=== PATIENT | female | born 1995 | race African-American/Black ===

== ENCOUNTER 2018-01-15 07:05 | Emergency (ER) | payer OTHER ==
--- NOTE | 2018-01-15 08:27 | RAD REPORT ---
EXAM DESCRIPTION: VAS - Extremity Venous Uni Ltd - 01/15/2018 8:05 am CLINICAL HISTORY: Leg swelling and edema. COMPARISON: None. FINDINGS: Right lower extremity venous system was interrogated with Doppler technique. Normal flow, compressibility and augmentation was noted. There is no DVT present. IMPRESSION: No evidence of right lower extremity deep venous thrombosis.
--- NOTE | 2018-01-15 08:43 | ER ---
Nurse's Notes [facility] Name: Tiera Galindo Age: 22 yrs Sex: Female : 1995 Arrival Date: 01/15/2018 Time: 07:06 Bed 14 Private MD: Diagnosis: Sciatica, right side Presentation: 01/15 07:19 Presenting complaint: Patient states: has had pain to right leg X 3 -4 days, pain iw radiates from low back to right leg, /, pt is 26 weeks . Transition of care: patient was not received from another setting of care. Onset of symptoms was January 11, 2018. Initial Sepsis Screen: Does the patient meet any 2 criteria? No. Patient's initial sepsis screen is negative. Does the patient have a suspected source of infection? No. Patient's initial sepsis screen is negative. Care prior to arrival: None. 07:19 Method Of Arrival: Ambulatory iw 07:19 Acuity: ELEAZAR 4 iw Triage Assessment: 07:29 General: Appears in no apparent distress. uncomfortable, Behavior is calm, cooperative, hj appropriate for age. 07:29 Pain: Complains of pain in right leg. 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 - Social history:: Smoking status: Patient/guardian denies using tobacco, Patient/guardian denies using alcohol. Screenin:29 Abuse screen: Denies threats or abuse. Denies injuries from another. Nutritional hj screening: No deficits noted. Tuberculosis screening: No symptoms or risk factors identified. Fall Risk None identified. Assessment: 07:30 General: Appears in no apparent distress. uncomfortable, Behavior is calm, cooperative, hj appropriate for age. Pain: Complains of pain in right leg. Neuro: Level of Consciousness is awake, alert, obeys commands, Oriented to person, place, time, situation, Appropriate for age. Cardiovascular: Capillary refill < 3 seconds Patient's skin is warm and dry. Respiratory: Airway is patent Respiratory effort is even, unlabored, Respiratory pattern is regular, symmetrical. GI: No signs and/or symptoms were reported involving the gastrointestinal system. : No signs and/or symptoms were reported regarding the genitourinary system. EENT: No signs and/or symptoms were reported regarding the EENT system. Derm: No signs and/or symptoms reported regarding the dermatologic system. Musculoskeletal: Reports pain in right leg. 07:50 Reassessment: US tech in room for procedure;. hj Vital Signs: 07:21 BP 125 / 59; Pulse 79; Resp 18 S; Temp 98.5; Pulse Ox 97% on R/A; Weight 125.19 kg; iw Height 5 ft. 4 in. (162.56 cm); Pain 7/10; 08:52 BP 128 / 60; Pulse 75; Resp 18; Pulse Ox 100% on R/A; hj 07:21 Body Mass Index 47.37 (125.19 kg, 162.56 cm) iw ED Course: 07:06 Patient arrived in ED. ds1 07:18 Ramirez Rivera NP is PHCP. pm1 07:18 Derrick Yu MD is Attending Physician. pm1 07:21 Triage completed. iw 07:21 Arm band placed on. iw 07:29 Nahum Torres, SHANE is Primary Nurse. hj 07:30 Patient has correct armband on for positive identification. Placed in gown. Bed in low hj position. Call light in reach. Side rails up X 1. 08:04 Extremity Venous Uni Ltd US In Process Unspecified. EDMS 08:05 Ultrasound completed. aa4 08:51 No provider procedures requiring assistance completed. Patient did not have IV access hj during this emergency room visit. Administered Medications: No medications were administered Outcome: 08:42 Discharge ordered by . pm1 08:52 Discharged to home ambulatory. hj 08:52 Condition: stable 08:52 Discharge instructions given to patient, Instructed on discharge instructions, follow up and referral plans. Demonstrated understanding of instructions, follow-up care. 09:03 Patient left the ED. hj Signatures: Dispatcher [employer] EDKY La Doherty ds1 Shanika Gates RN RN Day Carney aa4 Nahum Torres RN RN Ramirez Rivera NP IMPLEMENTATION LEAD pm1
--- NOTE | 2018-01-15 08:43 | EDPHYS ---
Physician Documentation [facility] Name: Tiera Galindo Age: 22 yrs Sex: Female : 1995 Arrival Date: 01/15/2018 Time: 07:06 Bed 14 Private MD: ED Physician Derrick Yu HPI: 01/15 07:39 This 22 yrs old Black Female presents to ER via Ambulatory with complaints of Right Leg pm1 Pain. 07:39 The patient presents with pain, that is acute. The complaints affect the right hip and pm1 lateral aspect of right thigh. Context: The problem was sustained at an unknown site, resulted from an unknown cause, the patient can fully bear weight, the patient is able to ambulate, Problem is a result from a previous injury: No. 26 weeks . Onset: The symptoms/episode began/occurred 4 day(s) ago. Modifying factors: The symptoms are alleviated by positioning. the symptoms are aggravated by movement. Associated signs and symptoms: Pertinent negatives calf tenderness, fever, nausea, numbness, swelling, vomiting. Treatment prior to arrival includes: no previous treatment. Severity of symptoms: in the emergency department the symptoms are unchanged. The patient has not experienced similar symptoms in the past. Patient with pain to distal lateral aspect of right thigh radiating to right buttocks area. No chest pain or shortness of breath. 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 - Social history:: Smoking status: Patient/guardian denies using tobacco, Patient/guardian denies using alcohol. ROS: 08:35 Constitutional: Negative for fever, chills, and weight loss, Eyes: Negative for injury, pm1 pain, redness, and discharge, ENT: Negative for injury, pain, and discharge, Neck: Negative for injury, pain, and swelling, Cardiovascular: Negative for chest pain, palpitations, and edema, Respiratory: Negative for shortness of breath, cough, wheezing, and pleuritic chest pain, Abdomen/GI: Negative for abdominal pain, nausea, vomiting, diarrhea, and constipation, Back: Negative for injury and pain, : Negative for injury, bleeding, discharge, and swelling. 08:35 Skin: Negative for injury, rash, and discoloration, Neuro: Negative for headache, weakness, numbness, tingling, and seizure. 08:35 MS/extremity: Positive for pain, of the right leg, Negative for decreased range of motion, erythema, swelling. Exam: 08:35 Head/Face: Normocephalic, atraumatic. Eyes: Pupils equal round and reactive to light, pm1 extra-ocular motions intact. Lids and lashes normal. Conjunctiva and sclera are non-icteric and not injected. Cornea within normal limits. Periorbital areas with no swelling, redness, or edema. ENT: Nares patent. No nasal discharge, no septal abnormalities noted. Tympanic membranes are normal and external auditory canals are clear. Oropharynx with no redness, swelling, or masses, exudates, or evidence of obstruction, uvula midline. Mucous membranes moist. Neck: Trachea midline, no thyromegaly or masses palpated, and no cervical lymphadenopathy. Supple, full range of motion without nuchal rigidity, or vertebral point tenderness. No Meningismus. Chest/axilla: Normal chest wall appearance and motion. Nontender with no deformity. No lesions are appreciated. Cardiovascular: Regular rate and rhythm with a normal S1 and S2. No gallops, murmurs, or rubs. Normal PMI, no JVD. No pulse deficits. Respiratory: Lungs have equal breath sounds bilaterally, clear to auscultation and percussion. No rales, rhonchi or wheezes noted. No increased work of breathing, no retractions or nasal flaring. Abdomen/GI: Soft, non-tender, with normal bowel sounds. No distension or tympany. No guarding or rebound. No evidence of tenderness throughout. Back: No spinal tenderness. No costovertebral tenderness. Full range of motion. Skin: Warm, dry with normal turgor. Normal color with no rashes, no lesions, and no evidence of cellulitis. 08:35 Constitutional: The patient appears in no acute distress, alert, awake, comfortable, non-toxic, well developed, well hydrated, well groomed, well nourished, obese. 08:35 Musculoskeletal/extremity: Extremities: grossly normal except: noted in the lateral aspect of right thigh: tenderness, There is no evidence of decreased ROM, deformity, ecchymosis, swelling, Circulation is intact in all extremities. Pulses: noted to be 2+ in the right dorsalis pedis artery and left dorsalis pedis artery, Sensation intact. 08:35 Neuro: Orientation: is normal, Motor: is normal, moves all fours, Sensation: is normal, no obvious gross deficits, Gait: is steady, at a normal pace, without difficulty. Vital Signs: 07:21 BP 125 / 59; Pulse 79; Resp 18 S; Temp 98.5; Pulse Ox 97% on R/A; Weight 125.19 kg; iw Height 5 ft. 4 in. (162.56 cm); Pain 7/10; 08:52 BP 128 / 60; Pulse 75; Resp 18; Pulse Ox 100% on R/A; hj 07:21 Body Mass Index 47.37 (125.19 kg, 162.56 cm) iw MDM: 07:27 Patient medically screened. pm1 08:38 Data reviewed: vital signs. Data interpreted: Pulse oximetry: on room air is 97 %. pm1 Interpretation: normal. Counseling: I had a detailed discussion with the patient and/or guardian regarding: the historical points, exam findings, and any diagnostic results supporting the discharge/admit diagnosis, radiology results, the need for outpatient follow up, to return to the emergency department if symptoms worsen or persist or if there are any questions or concerns that arise at home. 01/15 07:27 Order name: Extremity Venous Uni Ltd ; Complete Time: 08:35 pm1 Administered Medications: No medications were administered Disposition: 14:54 Co-signature as Attending Physician, Derrick Yu MD. Chart complete. rn Disposition: 01/15/18 08:42 Discharged to Home. Impression: Sciatica, right side. - Condition is Stable. - Discharge Instructions: Sciatica. - Medication Reconciliation Form, Thank You Letter form. - Follow up: Emergency Department; When: As needed; Reason: Worsening of condition. Follow up: Private Physician; When: 2 - 3 days; Reason: Recheck today's complaints, Continuance of care, Re-evaluation by your physician. - Problem is new. - Symptoms have improved. Signatures: Dispatcher [employer] Shanika Richardson RN RN Derrick Yu MD MD rn Joaquin, Henry, RN RN Ramirez Rivera, TREE SCOUT TREE SCOUT pm1 Corrections: (The following items were deleted from the chart) 09:03 08:42 01/15/2018 08:42 Discharged to Home. Impression: Sciatica, right side. Condition hj is Stable. Forms are Medication Reconciliation Form, Thank You Letter, Antibiotic Education, Prescription Opioid Use. Follow up: Emergency Department; When: As needed; Reason: Worsening of condition. Follow up: Private Physician; When: 2 - 3 days; Reason: Recheck today's complaints, Continuance of care, Re-evaluation by your physician. Problem is new. Symptoms have improved. pm1
== END 2018-01-15 09:03 | disposition home or self-care (01) ==
LOC: ER 07:05
DX: M54.31 Sciatica, right side (principal); Z3A.26 26 weeks gestation of pregnancy
CPT/HCPCS: 93971; 99283

== ENCOUNTER 2018-11-24 10:32 | Emergency (ER) | payer OTHER, SELFPAY ==
[2018-11-24] MEDS ORDERED: METOCLOPRAMIDE 10 MG/2mL INJ ONE (11:32)
[2018-11-24 11:49] LABS: Absolute Lymphocytes (CBC) 2.2 K/uL (0.7-4.9); Absolute Monocytes 0.4 K/uL (0.1-1.3); Absolute Neutrophil 1.8 K/uL (1.8-8.0); Basophils % 0.7 % (0-1.3); Eosinophils % 0.7 % (0-4.4); Hematocrit 38.3 % (36.0-45.0); Lymphocytes % 49.3 % (15.3-44.8); MPV 9.1 fL (7.6-11.3); Monocytes % 8.9 % (3.3-12.3); RBC Red Blood Cell Count 4.42 M/uL (3.86-4.86)
[2018-11-24 12:14] LABS: Bilirubin Direct 0.1 mg/dL (0-0.2); Bilirubin Total 0.6 mg/dL (0.2-1.0); Potassium 3.9 mmol/L (3.5-5.1); Protein, Total 7.8 g/dL (6.4-8.2)
[2018-11-24 12:15] LABS: Urine Blood TRACE (NEG); Urine Glucose NEGATIVE (NEG); Urine Protein NEGATIVE (NEG); Urine Specific Gravity 1.025 (1.005-1.030); Urine pH 5.5 (5.0-7.0)
--- NOTE | 2018-11-24 13:27 | ER ---
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 Transition of care: patient was not received from another setting of care. Onset of symptoms was November 24, 2018. Risk Assessment: Do you want to hurt yourself or someone else? Patient reports no desire to harm self or others. Initial Sepsis Screen: Does the patient meet any 2 criteria? No. Patient's initial sepsis screen is negative. Does the patient have a suspected source of infection? No. Patient's initial sepsis screen is negative. Care prior to arrival: None. 10:46 Method Of Arrival: Ambulatory 10:46 Acuity: ELEAZAR 3 hj Triage Assessment: 10:48 General: Appears in no apparent distress. uncomfortable, Behavior is calm, cooperative, hj appropriate for age. Pain: Complains of pain in abdomen Pain currently is 7 out of 10 on a pain scale. GI: Reports upper abdominal pain, nausea, vomiting. 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 - Social history:: Smoking status: Patient/guardian denies using tobacco, Patient/guardian denies using alcohol. - Ebola Screening: : Patient negative for fever greater than or equal to 101.5 degrees Fahrenheit, and additional compatible Ebola Virus Disease symptoms Patient denies exposure to infectious person Patient denies travel to an Ebola-affected area in the 21 days before illness onset. Screenin:48 Abuse screen: Denies threats or abuse. Denies injuries from another. Nutritional hj screening: No deficits noted. Tuberculosis screening: No symptoms or risk factors identified. Fall Risk None identified. Assessment: 10:49 GI: Abdomen is non-distended, obese. hj 11:30 General: Appears in no apparent distress. Behavior is calm, cooperative. Pain: Pain hb currently is 5 out of 10 on a pain scale. Neuro: Level of Consciousness is awake, alert, obeys commands, Oriented to person, place, time, situation. Cardiovascular: Capillary refill < 3 seconds Patient's skin is warm and dry. Respiratory: Airway is patent Respiratory effort is even, unlabored, Respiratory pattern is regular, symmetrical, Breath sounds are clear bilaterally. GI: Abdomen is non-distended, Bowel sounds present X 4 quads. Abd is soft and non tender X 4 quads. Reports nausea. : No signs and/or symptoms were reported regarding the genitourinary system. EENT: No signs and/or symptoms were reported regarding the EENT system. Derm: Skin is healthy with good turgor. Musculoskeletal: No signs and/or symptoms reported regarding the musculoskeletal system. 12:30 Reassessment: Patient appears in no apparent distress at this time. No changes from hb previously documented assessment. Patient and/or family updated on plan of care and expected duration. Pain level reassessed. Patient is alert, oriented x 3, equal unlabored respirations, skin warm/dry/pink. 13:30 Reassessment: Patient appears in no apparent distress at this time. No changes from hb previously documented assessment. Patient and/or family updated on plan of care and expected duration. Pain level reassessed. Patient is alert, oriented x 3, equal unlabored respirations, skin warm/dry/pink. Vital Signs: 10:50 BP 139 / 102; Pulse 74; Resp 18; Temp 99.8(O); Pulse Ox 99% ; Weight 140.61 kg; Height 5 ft. 5 in. (165.10 cm); Pain 7/10; 12:00 BP 136 / 86; Pulse 76; Resp 16; Pulse Ox 100% on R/A; hb 13:30 BP 140 / 80; Pulse 76; Resp 16; Pulse Ox 100% on R/A; hb 10:50 Body Mass Index 51.59 (140.61 kg, 165.10 cm) ED Course: 10:33 Patient arrived in ED. as 10:48 Triage completed. hj 10:49 Arm band placed on left wrist. hj 10:51 Patient has correct armband on for positive identification. Placed in gown. Bed in low hj position. Call light in reach. Side rails up X 1. Adult w/ patient. 11:03 Sky Childers MD is Attending Physician. ps1 11:24 Daphne Owusu, RN is Primary Nurse. hb 11:31 Initial lab(s) drawn, by me, sent to lab. Inserted saline lock: 22 gauge in right jb1 antecubital area, using aseptic technique. Blood collected. 11:51 Urine collected: clean catch specimen, cloudy, florence colored. jb1 13:52 No provider procedures requiring assistance completed. IV discontinued, intact, hb bleeding controlled, No redness/swelling at site. Pressure dressing applied. Administered Medications: 11:38 Drug: Reglan 10 mg Route: IVP; Site: right antecubital; hb 15:50 Follow up: Response: No adverse reaction hb Outcome: 13:26 Discharge ordered by . ps1 13:52 Discharged to home ambulatory, with significant other. hb 13:52 Condition: stable 13:52 Discharge instructions given to patient, Instructed on discharge instructions, follow up and referral plans. medication usage, Demonstrated understanding of instructions, follow-up care, medications. 13:53 Patient left the ED. hb Signatures: Raul Mccarthy jb1 Abida Watkins Henry, RN RN Daphne Owusu RN RN Sky Childers MD MD ps1
--- NOTE | 2018-11-24 13:27 | EDPHYS ---
Physician Documentation [facility] Name: Tiera Galindo Age: 23 yrs Sex: Female : 1995 Arrival Date: 11/24/2018 Time: 10:33 Bed 18 Private MD: ED Physician Sky Childers HPI: 11/24 11:08 This 23 yrs old Black Female presents to ER via Ambulatory with complaints of ps1 Dizziness, Nausea. 11:08 patient has multiple complaints that started 3 days ago. She states that she has ps1 fatigue, chronic nausea, chest pain that started and ended yesterday. She lives in [place] and has not established PCP in area. Has prescriptions for promethazine and zofran which she did not take this morning. She now complains that she has nausea and is lightheaded. . 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 - Social history:: Smoking status: Patient/guardian denies using tobacco, Patient/guardian denies using alcohol. - Ebola Screening: : Patient negative for fever greater than or equal to 101.5 degrees Fahrenheit, and additional compatible Ebola Virus Disease symptoms Patient denies exposure to infectious person Patient denies travel to an Ebola-affected area in the 21 days before illness onset. ROS: 11:08 Constitutional: Negative for fever, chills, and weight loss, Eyes: Negative for injury, ps1 pain, redness, and discharge, ENT: Negative for injury, pain, and discharge, Respiratory: Negative for shortness of breath, cough, wheezing, and pleuritic chest pain. 11:08 MS/Extremity: Negative for injury and deformity, Skin: Negative for injury, rash, and discoloration, Neuro: Negative for headache, weakness, numbness, tingling, and seizure. 11:08 Cardiovascular: Positive for chest pain. 11:08 Abdomen/GI: Positive for nausea and vomiting. Exam: 11:08 Constitutional: This is a well developed, well nourished patient who is awake, alert, ps1 and in no acute distress. Head/Face: Normocephalic, atraumatic. Chest/axilla: Normal chest wall appearance and motion. Nontender with no deformity. No lesions are appreciated. Cardiovascular: Regular rate and rhythm. No gallops, murmurs, or rubs. Normal PMI, no JVD. No pulse deficits. Respiratory: Lungs have equal breath sounds bilaterally, clear to auscultation and percussion. No rales, rhonchi or wheezes noted. No increased work of breathing, no retractions or nasal flaring. Abdomen/GI: Soft, non-tender, with normal bowel sounds. No distension or tympany. No guarding or rebound. No evidence of tenderness throughout. MS/ Extremity: Pulses equal, no cyanosis. Neurovascular intact. Full, normal range of motion. Neuro: Awake and alert, GCS 15, oriented to person, place, time, and situation. Cranial nerves II-XII grossly intact. Sensory grossly intact. Psych: Awake, alert, with orientation to person, place and time. Behavior, mood, and affect are within normal limits. Vital Signs: 10:50 BP 139 / 102; Pulse 74; Resp 18; Temp 99.8(O); Pulse Ox 99% ; Weight 140.61 kg; Height 5 ft. 5 in. (165.10 cm); Pain 7/10; 12:00 BP 136 / 86; Pulse 76; Resp 16; Pulse Ox 100% on R/A; hb 13:30 BP 140 / 80; Pulse 76; Resp 16; Pulse Ox 100% on R/A; hb 10:50 Body Mass Index 51.59 (140.61 kg, 165.10 cm) MDM: 11:24 Patient medically screened. [facility] 11/24 11:08 Order name: Basic Metabolic Panel; Complete Time: 12: [facility] 11/24 11:08 Order name: CBC with Diff; Complete Time: 11:55 [facility] 11/24 11:08 Order name: Creatinine for Radiology; Complete Time: 11: [facility] 11/24 11:08 Order name: Hepatic Function; Complete Time: 12:29 [facility] 11/24 11:08 Order name: Lipase; Complete Time: 12: [facility] 11/24 11:42 Order name: Urine Dipstick--Ancillary (enter results); Complete Time: 12:29 bd 11/24 10:51 Order name: Urine Dipstick-Ancillary (obtain specimen); Complete Time: 11:38 hj 11/24 10:51 Order name: Urine Test (obtain specimen); Complete Time: 11:38 hj 11/24 11:08 Order name: IV Saline Lock; Complete Time: 11:31 ps1 11/24 11:08 Order name: Labs collected and sent; Complete Time: 11:31 ps1 11/24 11:42 Order name: Urine --Ancillary (enter results); Complete Time: 12:29 bd Administered Medications: 11:38 Drug: Reglan 10 mg Route: IVP; Site: right antecubital; hb 15:50 Follow up: Response: No adverse reaction hb Disposition: 11/24/18 13:26 Discharged to Home. Impression: Nausea and vomiting. - Condition is Stable. - Discharge Instructions: Nausea and Vomiting, Adult. - Medication Reconciliation Form, Thank You Letter, Antibiotic Education, Prescription Opioid Use form. - Follow up: Private Physician; When: 1 week; Reason: Recheck today's complaints. Follow up: Emergency Department; When: As needed; Reason: Worsening of condition. - Problem is chronic. - Symptoms are unchanged. Signatures: Dispatcher [employer] EDCO Nahum Torres RN RN Daphne Owusu RN RN Sky Childers MD MD ps1 Corrections: (The following items were deleted from the chart) 13:53 13:26 11/24/2018 13:26 Discharged to Home. Impression: Nausea and vomiting. Condition hb is Stable. Forms are Medication Reconciliation Form, Thank You Letter, Antibiotic Education, Prescription Opioid Use. Follow up: Private Physician; When: 1 week; Reason: Recheck today's complaints. Follow up: Emergency Department; When: As needed; Reason: Worsening of condition. Problem is chronic. Symptoms are unchanged. ps1
== END 2018-11-24 13:53 | disposition home or self-care (01) ==
LOC: ER 10:32
DX: R11.2 Nausea with vomiting, unspecified (principal); F32.9 Major depressive disorder, single episode, unspecified; E28.2 Polycystic ovarian syndrome
CPT/HCPCS: 36415; 80048; 80076; 81003; 81025; 83690; 85025; 96374; 99283; J2765

== ENCOUNTER 2020-03-14 10:01 | Emergency (ER) | payer OTHER ==
--- NOTE | 2020-03-14 11:09 | RAD REPORT ---
EXAM DESCRIPTION: CT - Head Brain Wo Cont - 03/14/2020 10:50 am CLINICAL HISTORY: Dizziness;Headache Headache, drowsiness COMPARISON: No comparisons TECHNIQUE: All CT scans are performed using dose optimization technique as appropriate and may inclu de automated exposure control or mA/KV adjustment according to patient size. FINDINGS: No intracranial hemorrhage, hydrocephalus or extra-axial fluid collection.No areas of brai n edema or evidence of midline shift. The paranasal sinuses and mastoids are clear. The calvarium is intact. IMPRESSION: No acute intracranial abnormality.
[2020-03-14 12:52] LABS: Urine Blood NEGATIVE (NEG); Urine Glucose NEGATIVE (NEG); Urine Protein NEGATIVE (NEG); Urine Specific Gravity >1.030 (1.005-1.030); Urine pH 6.5 (5.0-7.0)
[2020-03-14 13:14] LABS: Barbiturates NEGATIVE (NEGATIVE); Benzodiazepines NEGATIVE (NEGATIVE); Cocaine NEGATIVE (NEGATIVE); METHAMPHETAM NEGATIVE (NEGATIVE); Methadone NEGATIVE (NEGATIVE); Opiates NEGATIVE (NEGATIVE); Phencyclidine NEGATIVE (NEGATIVE); THC Cannibis NEGATIVE (NEGATIVE)
[2020-03-14] MEDS ORDERED: NA CHLORIDE 0.9% 1,000 ML ONE (13:16)
[2020-03-14 13:26] LABS: Absolute Lymphocytes (CBC) 2.5 K/uL (0.7-4.9); Basophils % 0.7 % (0-1.3); Hematocrit 37.3 % (36.0-45.0); Lymphocytes % 45.6 % (15.3-44.8); MPV 9.3 fL (7.6-11.3); RBC Red Blood Cell Count 4.37 M/uL (3.86-4.86)
[2020-03-14 13:39] LABS: ALT/SGPT 17 U/L (12-78); AST/SGOT 13 U/L (15-37); Alkaline Phosphatase 134 U/L (45-117); BUN Blood Urea Nitrogen 11 mg/dL (7-18); Bicarbonate 29 mmol/L (21-32); Bilirubin Total 0.4 mg/dL (0.2-1.0); Glucose Level 96 mg/dL (74-106); Potassium 3.8 mmol/L (3.5-5.1); Protein, Total 8.1 g/dL (6.4-8.2); Sodium Level 141 mmol/L (136-145)
--- OUTSIDE RECORDS SUMMARY | 2020-03-14 14:02 | XMS REPORT | Continuity of Care Document ---
:1995 Author Organization [facility] t Address [address] [place] [address] Care Team Providers Name Role Phone Unavailable Unavailable Unavailable Payers Payer Name Policy Type Policy Number Effective Date Expiration Date S ource Problems This patient has no known problems. Allergies, Adverse Reactions, Alerts Allergy Allergy Status Severity Reaction(s) Onset Inactive Treating Comm ents Source Name Type Date Date Clinician No Known DA Active U [facility] 01-30 [place] s 00:00: [address] Medications This patient has no known medications. Procedures This patient has no known procedures. Encounters Start End Encounter Admission Attending Care Care Encounter Source Date/Time Date/Time Type Type Clinicians Facility Department ID 2019-06-22 2019-06-22 Emergency [facility] [address] [facility] 15:00:00 15:00:00 Results Test Description Test Time Test Comments Results Result Comments Source UA RFLX MICR CULT IF INDICATED 2019-07-07 14:38:00 Test Item Value Reference Range Interpretation Comme nts UA COLOR (test code = COLU) YELLOW YELLOW UA APPEARANCE (test code = APPU) SLIGHT CLOUDY CLEAR UA GLUCOSE DIPSTICK (test code = DGLUU) NORMAL MG/DL NORMAL UA BILIRUBIN DIPSTICK (test code = BILU) NEGATIVE MG/DL NEGATIVE UA KETONE DIPSTICK (test code = KETU) NEGATIVE MG/DL NEGATIVE UA SPECIFIC GRAVITY (test code = SGU) 1.025 1.003-1.030 N UA BLOOD DIPSTICK (test code = BRIAN) 10 Jaguar/mm3 NEGATIVE A UA PH DIPSTICK (test code = LIZZ) 5.0 5.0-9.0 N UA PROTEIN DIPSTICK (test code = PROU) NEGATIVE MG/DL NEGATIVE UA UROBILINIOGEN DIPSTICK (test code = URO) NORMAL MG/DL NORMAL UA NITRITE DIPSTICK (test code = DALTON) NEGATIVE NEGATIVE UA LEUKOCYTE ESTERASE DIPSTICK (test code = LEUU) 100 /mm3 NEGA TIVE A UA CULTURE NEEDED? (test code = UACULT) NO, WBC<10 Criteria Culture Chk SOURCE OF URINE: CLEAN CATCHIndication for culture: Temperature > 100.4 F UA [id number] 14:38:00 Test Item Value Reference Range Interpretation Comments UA RBC (test code = RBCU) 0-3 RBC/HPF 0-3 UA WBC (test code = XWBCU) <10 WBC/HPF 0-5 UA EPITHELIAL CELLS (test code = FEW EPI/HPF FEW EPIU) UA BACTERIA (test code = XBACU) MODERATE NONE A UA MUCUS (test code = MUCU) SLIGHT #/LPF NONE SOURCE OF URINE: CLEAN CATCHIndication for culture: Temperature > 100.4 F BASIC METABOLIC [id number] 13:45:00 Test Item Value Reference Range Interpretation Comments SODIUM (test code = 137 MMOL/L 137-145 N NA) POTASSIUM (test code = 4.0 MMOL/L 3.5-5.1 N K) CHLORIDE (test code = 104 MMOL/L 98-107 N CL) CARBON DIOXIDE (test 25 MMOL/L 22-30 N code = CO2) ANION GAP (test code = 12 MMOL/L 14-24 L GAP) GLUCOSE (test code = 103 MG/DL 74-106 N GLU) BLOOD UREA NITROGEN 12 MG/DL 7-17 N (test code = BUN) GLOMERULAR FILTRATION > 60 Report ing units: RATE (test code = GFR) ml/mi n/1.73 m2 (Modified MDRD Formula)Referen ce Range: > or = 6 0 ml/min/1.73 m2 CREATININE (test code 0.90 MG/DL 0.52-1.04 N = CREAT) CALCIUM (test code = 9.1 MG/DL 8.4-10.2 N CA) HEPATIC FUNCTION [id number] 13:45:00 Test Item Value Reference Range Interpretation Comments TOTAL PROTEIN (test code = PROT) 7.6 G/DL 6.3-8.2 N ALBUMIN (test code = ALB) 3.8 G/DL 3.5-5.0 N BILIRUBIN TOTAL (test code = 0.8 MG/DL 0.2-1.3 N BILT) BILIRUBIN DIRECT (test code = 0.0 MG/DL 0.0-0.3 N BILD) SGOT/AST (test code = AST) 23 UNITS/L 14-36 N SGPT/ALT (test code = ALT) 18 UNITS/L <35 ALKALINE PHOSPHATASE (test code = 119 UNITS/L 38-126 N ALKP) HCG SERUM [id number] 13:45:00 Test Item Value Reference Range Interpretation Comments HCG SERUM QUAL (test code = HCGQL) NEGATIVE NEGATIVE A [id number] 13:45:00 Test Item Value Reference Range Interpretation Comments TROPONIN-I (test code = TROPI) < 0.012 NG/ML 0.012-0.033 L BASIC METABOLIC [id number] 13:44:00 Test Item Value Reference Range Interpretation Comments SODIUM (test code = 137 MMOL/L 137-145 N NA) POTASSIUM (test code = 4.0 MMOL/L 3.5-5.1 N K) CHLORIDE (test code = 104 MMOL/L 98-107 N CL) CARBON DIOXIDE (test 25 MMOL/L 22-30 N code = CO2) ANION GAP (test code = 12 MMOL/L 14-24 L GAP) GLUCOSE (test code = 103 MG/DL 74-106 N GLU) BLOOD UREA NITROGEN 12 MG/DL 7-17 N (test code = BUN) GLOMERULAR FILTRATION > 60 Report ing units: RATE (test code = GFR) ml/mi n/1.73 m2 (Modified MDRD Formula)Referen ce Range: > or = 6 0 ml/min/1.73 m2 CREATININE (test code 0.90 MG/DL 0.52-1.04 N = CREAT) CALCIUM (test code = 9.1 MG/DL 8.4-10.2 N CA) HEPATIC FUNCTION [id number] 13:44:00 Test Item Value Reference Range Interpretation Comments TOTAL PROTEIN (test code = PROT) 7.6 G/DL 6.3-8.2 N ALBUMIN (test code = ALB) 3.8 G/DL 3.5-5.0 N BILIRUBIN TOTAL (test code = 0.8 MG/DL 0.2-1.3 N BILT) BILIRUBIN DIRECT (test code = 0.0 MG/DL 0.0-0.3 N BILD) SGOT/AST (test code = AST) 23 UNITS/L 14-36 N SGPT/ALT (test code = ALT) 18 UNITS/L <35 ALKALINE PHOSPHATASE (test code = 119 UNITS/L 38-126 N ALKP) HCG SERUM [id number] 13:44:00 Test Item Value Reference Range Interpretation Comments HCG SERUM QUAL (test code = HCGQL) NEGATIVE [id number] 13:44:00 Test Item Value Reference Range Interpretation Comments TROPONIN-I (test code = TROPI) < 0.012 NG/ML 0.012-0.033 L POC VENOUS BLOOD [id number] 13:39:00 Test Item Value Reference Range Interpretation Comments POC LACTIC ACID (test code = 0.76 MMOL/L 0.4-2.0 N POCLAC) POC VENOUS BLOOD GAS PH (test 7.352 7.35-7.45 N code = POCPHV) POC VENOUS BLOOD GAS PCO2 (test 41.0 mmHg 35.0-45.0 N code = [id number]) POC VENOUS BLOOD GAS PO2 (test 26.0 mmHG 0-40 N code = XHOUZ9W) POC HCO3 VENOUS (test code = 22.8 MMOL/L 20-26 N JLFGII0R) POC BASE EXCESS VENOUS (test code -3 MMOL/L -3.0-3.0 N = POCBEV) POC O2 SATURATION VENOUS (test 44 % 72-77 L code = [id number]) UA RFLX MICR CULT IF [id number] 13:35:00 Test Item Value Reference Range Interpretation Comments UA COLOR (test code = COLU) YELLOW YELLOW UA APPEARANCE (test code = SLIGHT CLOUDY CLEAR APPU) UA GLUCOSE DIPSTICK (test code NORMAL MG/DL NORMAL = DGLUU) UA BILIRUBIN DIPSTICK (test NEGATIVE MG/DL NEGATIVE code = BILU) UA KETONE DIPSTICK (test code NEGATIVE MG/DL NEGATIVE = KETU) UA SPECIFIC GRAVITY (test code 1.025 1.003-1.030 N = SGU) UA BLOOD DIPSTICK (test code = 10 Jaguar/mm3 NEGATIVE A BRIAN) UA PH DIPSTICK (test code = 5.0 5.0-9.0 N LIZZ) UA PROTEIN DIPSTICK (test code NEGATIVE MG/DL NEGATIVE = PROU) UA UROBILINIOGEN DIPSTICK NORMAL MG/DL NORMAL (test code = URO) UA NITRITE DIPSTICK (test code NEGATIVE NEGATIVE = DALTON) UA LEUKOCYTE ESTERASE DIPSTICK 100 /mm3 NEGATIVE A (test code = LEUU) UA CULTURE NEEDED? (test code Criteria Culture Chk = UACULT) SOURCE OF URINE: CLEAN CATCHIndication for culture: Temperature > 100.4 F UA [id number] 13:35:00 Test Item Value Reference Range Interpretation Comments UA RBC (test code = RBCU) RBC/HPF 0-3 UA WBC (test code = XWBCU) WBC/HPF 0-5 UA EPITHELIAL CELLS (test code = EPI/HPF FEW EPIU) UA BACTERIA (test code = XBACU) NONE SOURCE OF URINE: CLEAN CATCHIndication for culture: Temperature > 100.4 F UA RFLX MICR CULT IF [id number] 13:35:00 Test Item Value Reference Range Interpretation Comments UA COLOR (test code = COLU) YELLOW YELLOW UA APPEARANCE (test code = SLIGHT CLOUDY CLEAR APPU) UA GLUCOSE DIPSTICK (test code NORMAL MG/DL NORMAL = DGLUU) UA BILIRUBIN DIPSTICK (test NEGATIVE MG/DL NEGATIVE code = BILU) UA KETONE DIPSTICK (test code NEGATIVE MG/DL NEGATIVE = KETU) UA SPECIFIC GRAVITY (test code 1.025 1.003-1.030 N = SGU) UA BLOOD DIPSTICK (test code = 10 Jaguar/mm3 NEGATIVE A BRIAN) UA PH DIPSTICK (test code = 5.0 5.0-9.0 N LIZZ) UA PROTEIN DIPSTICK (test code NEGATIVE MG/DL NEGATIVE = PROU) UA UROBILINIOGEN DIPSTICK NORMAL MG/DL NORMAL (test code = URO) UA NITRITE DIPSTICK (test code NEGATIVE NEGATIVE = DALTON) UA LEUKOCYTE ESTERASE DIPSTICK 100 /mm3 NEGATIVE A (test code = LEUU) UA CULTURE NEEDED? (test code Criteria Culture Chk = UACULT) SOURCE OF URINE: CLEAN CATCHIndication for culture: Temperature > 100.4 F UA [id number] 13:35:00 Test Item Value Reference Range Interpretation Comments UA RBC (test code = RBCU) RBC/HPF 0-3 UA WBC (test code = XWBCU) WBC/HPF 0-5 UA EPITHELIAL CELLS (test code = EPI/HPF FEW EPIU) UA BACTERIA (test code = XBACU) NONE SOURCE OF URINE: CLEAN CATCHIndication for culture: Temperature > 100.4 F CBC W/AUTO [id number] 13:33:00 Test Item Value Reference Range Interpretation Comments WHITE BLOOD CELL (test code = 9.1 K/MM3 3.8-9.8 N WBC) RED BLOOD CELL (test code = 4.15 M/MM3 3.58-4.97 N RBC) HEMOGLOBIN (test code = HGB) 11.7 G/DL 11.2-14.9 N HEMATOCRIT (test code = HCT) 36.6 % 33.2-43.5 N MEAN CELL VOLUME (test code = 88 fL 80.7-99.1 N MCV) MEAN CELL HGB (test code = MCH) 28.2 pg 27.0-34.1 N MEAN CELL HGB CONCETRATION 32.0 % 32.2-35.7 L (test code = MCHC) RED CELL DISTRIBUTION WIDTH 13.8 % 12.1-15.2 N (test code = RDW) PLATELET COUNT (test code = 268 K/MM3 129-368 N PLT) MEAN PLATELET VOLUME (test code 10.9 fl 7.4-10.4 H = MPV) NEUTROPHIL % (test code = NT%) 73.3 % 43-75 N IMMATURE GRANULOCYTE % (test 0.2 % 0.0-2.0 N code = IG%) LYMPHOCYTE % (test code = LY%) 19.2 % 14-44 N MONOCYTE % (test code = MO%) 6.2 % 4-13 N EOSINOPHIL % (test code = EO%) 0.9 % 0-6 N BASOPHIL % (test code = BA%) 0.2 % 0-2 N NUCLEATED RBC % (test code = 0.0 % 0-1.0 N NRBC%) NEUTROPHIL # (test code = NT#) 6.67 K/mm3 2.0-7.6 N IMMATURE GRANULOCYTE # (test 0.02 x10 3/uL 0-0.03 N code = IG#) LYMPHOCYTE # (test code = LY#) 1.75 K/mm3 1.0-3.8 N MONOCYTE # (test code = MO#) 0.56 K/mm3 0.1-0.8 N EOSINOPHIL # (test code = EO#) 0.08 K/mm3 0.0-0.2 N BASOPHIL # (test code = BA#) 0.02 K/mm3 0.0-0.2 N NUCLEATED RBC # (test code = 0.00 K/mm3 0.0-0.1 N NRBC#) BASIC METABOLIC [id number] 13:33:00 Test Item Value Reference Range Interpretation Comments SODIUM (test code = 137 MMOL/L 137-145 N NA) POTASSIUM (test code = 4.0 MMOL/L 3.5-5.1 N K) CHLORIDE (test code = 104 MMOL/L 98-107 N CL) CARBON DIOXIDE (test 25 MMOL/L 22-30 N code = CO2) ANION GAP (test code = 12 MMOL/L 14-24 L GAP) GLUCOSE (test code = 103 MG/DL 74-106 N GLU) BLOOD UREA NITROGEN 12 MG/DL 7-17 N (test code = BUN) GLOMERULAR FILTRATION > 60 Report ing units: RATE (test code = GFR) ml/mi n/1.73 m2 (Modified MDRD Formula)Referen ce Range: > or = 6 0 ml/min/1.73 m2 CREATININE (test code 0.90 MG/DL 0.52-1.04 N = CREAT) CALCIUM (test code = 9.1 MG/DL 8.4-10.2 N CA) HEPATIC FUNCTION [id number] 13:33:00 Test Item Value Reference Range Interpretation Comments TOTAL PROTEIN (test code = PROT) 7.6 G/DL 6.3-8.2 N ALBUMIN (test code = ALB) 3.8 G/DL 3.5-5.0 N BILIRUBIN TOTAL (test code = 0.8 MG/DL 0.2-1.3 N BILT) BILIRUBIN DIRECT (test code = 0.0 MG/DL 0.0-0.3 N BILD) SGOT/AST (test code = AST) 23 UNITS/L 14-36 N SGPT/ALT (test code = ALT) 18 UNITS/L <35 ALKALINE PHOSPHATASE (test code = 119 UNITS/L 38-126 N ALKP) HCG SERUM [id number] 13:33:00 Test Item Value Reference Range Interpretation Comments HCG SERUM QUAL (test code = HCGQL) NEGATIVE [id number] 13:33:00 Test Item Value Reference Range Interpretation Comments TROPONIN-I (test code = TROPI) NG/ML 0.0-0.045 - XR CHEST 2 [id number] 13:17:00 Patient Name: VICTOR MANUEL WEEKS Unit No: [id number] EXAMS: CPT CODE: [id number] XR CHEST 2 V [id number] Site ID: [id number] HISTORY: Chest pain FINDINGS: The lungs are clear and normally expanded. The heart and pulmonary vasculature is normal. Osseous structures are unremarkable. IMPRESSION: Negative chest X-ray. at 1317 Reported and signed by: Ashok Jaramillo MD CC: Jay Jay Jackman MD Technologist: Fátima Frank, RT (R) Transcrpt Date/Tm/Trnsp: 07/07/2019 (1317) [email or web address] Orig Print D/T: S: 07/07/2019 (1320) [facility] NAME: VICTOR MANUEL WEEKS [address] PHYS: [place] [address] : 1995 AGE: 23 SEX: F LOC: [facility] PHONE #: [phone] EXAM DATE: 07/07/2019 STATUS: PRE ER FAX #: [phone] RADIOLOGY NO: PAGE 1Signed ReportURINALYSIS [id number] 19:09:00 Test Item Value Reference Range Interpretation Comments UA COLOR (test code = YELLOW YELLOW COLU) UA APPEARANCE (test code SLIGHT CLOUDY CLEAR = APPU) UA GLUCOSE DIPSTICK (test NORMAL MG/DL NORMAL code = DGLUU) UA BILIRUBIN DIPSTICK NEGATIVE MG/DL NEGATIVE (test code = BILU) UA KETONE DIPSTICK (test 5 MG/DL NEGATIVE code = KETU) UA SPECIFIC GRAVITY (test 1.025 1.003-1.030 N code = SGU) UA BLOOD DIPSTICK (test NEGATIVE Jaguar/mm3 NEGATIVE code = BRIAN) UA PH DIPSTICK (test code 5.0 5.0-9.0 N = LIZZ) UA PROTEIN DIPSTICK (test NEGATIVE MG/DL NEGATIVE code = PROU) UA UROBILINIOGEN DIPSTICK NORMAL MG/DL NORMAL (test code = URO) UA NITRITE DIPSTICK (test NEGATIVE NEGATIVE code = DALTON) UA LEUKOCYTE ESTERASE 100 /mm3 NEGATIVE A DIPSTICK (test code = LEUU) UA CULTURE NEEDED? (test YES,WBC>10 & EPI<25 Culture Chk code = UACULT) Criteria UA [id number] 19:09:00 Test Item Value Reference Range Interpretation Comments UA RBC (test code = RBCU) 0-3 RBC/HPF 0-3 UA WBC (test code = XWBCU) 10-20 WBC/HPF 0-5 A UA EPITHELIAL CELLS (test code FEW EPI/HPF FEW = EPIU) UA BACTERIA (test code = XBACU) MODERATE NONE A URINALYSIS [id number] 18:52:00 Test Item Value Reference Range Interpretation Comments UA COLOR (test code = COLU) YELLOW YELLOW UA APPEARANCE (test code = SLIGHT CLOUDY CLEAR APPU) UA GLUCOSE DIPSTICK (test NORMAL MG/DL NORMAL code = DGLUU) UA BILIRUBIN DIPSTICK (test NEGATIVE MG/DL NEGATIVE code = BILU) UA KETONE DIPSTICK (test 5 MG/DL NEGATIVE code = KETU) UA SPECIFIC GRAVITY (test 1.025 1.003-1.030 N code = SGU) UA BLOOD DIPSTICK (test code NEGATIVE Jaguar/mm3 NEGATIVE = BRIAN) UA PH DIPSTICK (test code = 5.0 5.0-9.0 N LIZZ) UA PROTEIN DIPSTICK (test NEGATIVE MG/DL NEGATIVE code = PROU) UA UROBILINIOGEN DIPSTICK NORMAL MG/DL NORMAL (test code = URO) UA NITRITE DIPSTICK (test NEGATIVE NEGATIVE code = DALTON) UA LEUKOCYTE ESTERASE 100 /mm3 NEGATIVE A DIPSTICK (test code = LEUU) UA CULTURE NEEDED? (test Criteria Culture Chk code = UACULT) UA [id number] 18:52:00 Test Item Value Reference Range Interpretation Comments UA RBC (test code = RBCU) RBC/HPF 0-3 UA WBC (test code = XWBCU) WBC/HPF 0-5 UA EPITHELIAL CELLS (test code = EPI/HPF FEW EPIU) UA BACTERIA (test code = XBACU) NONE URINALYSIS [id number] 18:52:00 Test Item Value Reference Range Interpretation Comments UA COLOR (test code = COLU) YELLOW YELLOW UA APPEARANCE (test code = SLIGHT CLOUDY CLEAR APPU) UA GLUCOSE DIPSTICK (test NORMAL MG/DL NORMAL code = DGLUU) UA BILIRUBIN DIPSTICK (test NEGATIVE MG/DL NEGATIVE code = BILU) UA KETONE DIPSTICK (test 5 MG/DL NEGATIVE code = KETU) UA SPECIFIC GRAVITY (test 1.025 1.003-1.030 N code = SGU) UA BLOOD DIPSTICK (test code NEGATIVE Jaguar/mm3 NEGATIVE = BRIAN) UA PH DIPSTICK (test code = 5.0 5.0-9.0 N LIZZ) UA PROTEIN DIPSTICK (test NEGATIVE MG/DL NEGATIVE code = PROU) UA UROBILINIOGEN DIPSTICK NORMAL MG/DL NORMAL (test code = URO) UA NITRITE DIPSTICK (test NEGATIVE NEGATIVE code = DALTON) UA LEUKOCYTE ESTERASE 100 /mm3 NEGATIVE A DIPSTICK (test code = LEUU) UA CULTURE NEEDED? (test Criteria Culture Chk code = UACULT) UA [id number] 18:52:00 Test Item Value Reference Range Interpretation Comments UA RBC (test code = RBCU) RBC/HPF 0-3 UA WBC (test code = XWBCU) WBC/HPF 0-5 UA EPITHELIAL CELLS (test code = EPI/HPF FEW EPIU) UA BACTERIA (test code = XBACU) NONE CBC W/O [id number] 18:40:00 Test Item Value Reference Range Interpretation Comments WHITE BLOOD CELL (test code = 5.6 K/MM3 3.8-9.8 N WBC) RED BLOOD CELL (test code = 4.58 M/MM3 3.58-4.97 N RBC) HEMOGLOBIN (test code = HGB) 12.8 G/DL 11.2-14.9 N HEMATOCRIT (test code = HCT) 40.2 % 33.2-43.5 N MEAN CELL VOLUME (test code = 88 fL 80.7-99.1 N MCV) MEAN CELL HGB (test code = MCH) 27.9 pg 27.0-34.1 N MEAN CELL HGB CONCETRATION 31.8 % 32.2-35.7 L (test code = MCHC) RED CELL DISTRIBUTION WIDTH 13.5 % 12.1-15.2 N (test code = RDW) PLATELET COUNT (test code = 296 K/MM3 129-368 N PLT) NEUTROPHIL # (test code = NT#) 2.37 K/mm3 2.0-7.6 N IMMATURE GRANULOCYTE # (test 0.01 x10 3/uL 0-0.03 N code = IG#) LYMPHOCYTE # (test code = LY#) 2.50 K/mm3 1.0-3.8 N MONOCYTE # (test code = MO#) 0.57 K/mm3 0.1-0.8 N EOSINOPHIL # (test code = EO#) 0.10 K/mm3 0.0-0.2 N BASOPHIL # (test code = BA#) 0.02 K/mm3 0.0-0.2 N NUCLEATED RBC # (test code = 0.00 K/mm3 0.0-0.1 N NRBC#) BASIC METABOLIC [id number] 18:39:00 Test Item Value Reference Range Interpretation Comments SODIUM (test code = 145 MMOL/L 137-145 N NA) POTASSIUM (test code = 4.0 MMOL/L 3.5-5.1 N K) CHLORIDE (test code = 106 MMOL/L 98-107 N CL) CARBON DIOXIDE (test 29 MMOL/L 22-30 N code = CO2) ANION GAP (test code = 14 MMOL/L 14-24 N GAP) GLUCOSE (test code = 94 MG/DL 74-106 N GLU) BLOOD UREA NITROGEN 11 MG/DL 7-17 N (test code = BUN) GLOMERULAR FILTRATION > 60 Report ing units: RATE (test code = GFR) ml/mi n/1.73 m2 (Modified MDRD Formula)Referen ce Range: > or = 6 0 ml/min/1.73 m2 CREATININE (test code 1.00 MG/DL 0.52-1.04 N = CREAT) CALCIUM (test code = 9.4 MG/DL 8.4-10.2 N CA) HEPATIC FUNCTION [id number] 18:39:00 Test Item Value Reference Range Interpretation Comments TOTAL PROTEIN (test code = PROT) 8.6 G/DL 6.3-8.2 H ALBUMIN (test code = ALB) 4.3 G/DL 3.5-5.0 N BILIRUBIN TOTAL (test code = 0.5 MG/DL 0.2-1.3 N BILT) BILIRUBIN DIRECT (test code = 0.0 MG/DL 0.0-0.3 N BILD) SGOT/AST (test code = AST) 21 UNITS/L 14-36 N SGPT/ALT (test code = ALT) 11 UNITS/L 9-52 N ALKALINE PHOSPHATASE (test code = 108 UNITS/L 38-126 N ALKP) [id number] 18:39:00 Test Item Value Reference Range Interpretation Comments LIPASE (test code = LIP) 109 UNITS/L 23-300 N HCG SERUM [id number] 18:39:00 Test Item Value Reference Range Interpretation Comments HCG SERUM QUAL (test code = HCGQL) NEGATIVE NEGATIVE A BASIC METABOLIC [id number] 18:37:00 Test Item Value Reference Range Interpretation Comments SODIUM (test code = NA) MMOL/L 137-145 POTASSIUM (test code = K) MMOL/L 3.5-5.1 CHLORIDE (test code = CL) MMOL/L 98-107 CARBON DIOXIDE (test code = CO2) MMOL/L 22-30 GLUCOSE (test code = GLU) MG/DL 74-106 BLOOD UREA NITROGEN (test code = BUN) MG/DL 7-17 GLOMERULAR FILTRATION RATE (test code = GFR) CREATININE (test code = CREAT) MG/DL 0.52-1.04 CALCIUM (test code = CA) MG/DL 8.7-9.7 HEPATIC FUNCTION [id number] 18:37:00 Test Item Value Reference Range Interpretation Comments TOTAL PROTEIN (test code = PROT) G/DL 6.3-8.2 ALBUMIN (test code = ALB) G/DL 3.5-5.0 BILIRUBIN TOTAL (test code = BILT) MG/DL 0.2-1.3 BILIRUBIN DIRECT (test code = BILD) MG/DL 0.0-0.3 SGOT/AST (test code = AST) UNITS/L 15-37 SGPT/ALT (test code = ALT) UNITS/L 9-52 ALKALINE PHOSPHATASE (test code = UNITS/L 38-126 ALKP) [id number] 18:37:00 Test Item Value Reference Range Interpretation Comments LIPASE (test code = LIP) UNITS/L 23-300 HCG SERUM [id number] 18:37:00 Test Item Value Reference Range Interpretation Comments HCG SERUM QUAL (test code = HCGQL) NEGATIVE NEGATIVE A
--- NOTE | 2020-03-14 14:15 | RAD REPORT ---
EXAM DESCRIPTION: Mae Montano And Casandra (2 Views)03/14/2020 2:03 pm CLINICAL HISTORY: sob COMPARISON: 2017 FINDINGS: The lungs appear clear of acute infiltrate. The heart appears borderline enlarged IMPRESSION: No acute abnormalities displayed
[2020-03-14 14:44] LABS: NT PRO-BNP 163 pg/mL (<125); Troponin (Emerg Dept Use Only) < 0.02 ng/mL (0.0-0.045)
--- NOTE | 2020-03-14 15:27 | EDPHYS ---
Physician Documentation [facility] Name: Tiera Galindo Age: 24 yrs Sex: Female : 1995 Arrival Date: 03/14/2020 Time: 10:06 Bed 26 Private MD: ED Physician Jacques Long HPI: 03/14 13:22 This 24 yrs old Black Female presents to ER via Ambulatory with complaints of juan Dizziness, Blurred Vision, Headache. 13:22 The patient presents with dizziness, feeling faint. Onset: The symptoms/episode juan began/occurred 1 day(s) ago. Context: occurred at home. Historical: - Allergies: 10: NKA; dm5 - Home Meds: 10: Melatonin Oral [Active]; dm5 - PMHx: 10:17 "insulin resistant"; Depression; PCOS; dm5 - PSHx: 10:17 None; dm5 - Immunization history:: Adult Immunizations unknown. - Social history:: Smoking status: Patient denies any tobacco usage or history of. ROS: 13:22 Constitutional: Negative for fever, chills, and weight loss, Eyes: Negative for injury, juan pain, redness, and discharge, ENT: Negative for injury, pain, and discharge, Neck: Negative for injury, pain, and swelling, Cardiovascular: Negative for chest pain, palpitations, and edema, Abdomen/GI: Negative for abdominal pain, nausea, vomiting, diarrhea, and constipation, Back: Negative for injury and pain, : Negative for injury, bleeding, discharge, and swelling, MS/Extremity: Negative for injury and deformity, Skin: Negative for injury, rash, and discoloration, Neuro: Negative for headache, weakness, numbness, tingling, and seizure, Psych: Negative for depression, anxiety, suicide ideation, homicidal ideation, and hallucinations, Allergy/Immunology: Negative for hives, rash, and allergies, Endocrine: Negative for neck swelling, polydipsia, polyuria, polyphagia, and marked weight changes, Hematologic/Lymphatic: Negative for swollen nodes, abnormal bleeding, and unusual bruising. 13:22 Respiratory: Positive for cough, shortness of breath, at rest. Exam: 13:22 Constitutional: This is a well developed, well nourished patient who is awake, alert, juan and in no acute distress. Head/Face: Normocephalic, atraumatic. Eyes: Pupils equal round and reactive to light, extra-ocular motions intact. Lids and lashes normal. Conjunctiva and sclera are non-icteric and not injected. Cornea within normal limits. Periorbital areas with no swelling, redness, or edema. ENT: Nares patent. No nasal discharge, no septal abnormalities noted. Tympanic membranes are normal and external auditory canals are clear. Oropharynx with no redness, swelling, or masses, exudates, or evidence of obstruction, uvula midline. Mucous membranes moist. Neck: Trachea midline, no thyromegaly or masses palpated, and no cervical lymphadenopathy. Supple, full range of motion without nuchal rigidity, or vertebral point tenderness. No Meningismus. Chest/axilla: Normal chest wall appearance and motion. Nontender with no deformity. No lesions are appreciated. Cardiovascular: Regular rate and rhythm with a normal S1 and S2. No gallops, murmurs, or rubs. Normal PMI, no JVD. No pulse deficits. Respiratory: Lungs have equal breath sounds bilaterally, clear to auscultation and percussion. No rales, rhonchi or wheezes noted. No increased work of breathing, no retractions or nasal flaring. Abdomen/GI: Soft, non-tender, with normal bowel sounds. No distension or tympany. No guarding or rebound. No evidence of tenderness throughout. Back: No spinal tenderness. No costovertebral tenderness. Full range of motion. Female : Normal external genitalia. Skin: Warm, dry with normal turgor. Normal color with no rashes, no lesions, and no evidence of cellulitis. MS/ Extremity: Pulses equal, no cyanosis. Neurovascular intact. Full, normal range of motion. Neuro: Awake and alert, GCS 15, oriented to person, place, time, and situation. Cranial nerves II-XII grossly intact. Motor strength 5/5 in all extremities. Sensory grossly intact. Cerebellar exam normal. Normal gait. Psych: Awake, alert, with orientation to person, place and time. Behavior, mood, and affect are within normal limits. 13:22 Musculoskeletal/extremity: Extremities: all appear grossly normal, with no appreciated pain with palpation, ROM: no acute changes, intact in all extremities, full active range of motion, full passive range of motion, Circulation is intact in all extremities. Sensation intact. Compartment Syndrome exam of affected extremity: is normal. DVT Exam: No signs of deep vein thrombosis. no pain, no swelling, no tenderness, negative Homans' sign noted on exam, no appreciated bluish discoloration, no erythema, no increased warmth. Vital Signs: 10:13 BP 144 / 102; Pulse 81; Resp 18; Temp 97.8; Pulse Ox 100% on R/A; Weight 142.43 kg; dm5 Height 5 ft. 4 in. (162.56 cm); Pain 0/10; 15:00 BP 149 / 92; Pulse 78; Resp 18; Pulse Ox 97% ; ah 10:13 Body Mass Index 53.90 (142.43 kg, 162.56 cm) dm5 10:13 BP taken on wrist with small adult cuff, dizziness rated at 7/10 dm5 MDM: 12:49 Patient medically screened. juan 13:24 Differential diagnosis: Anemia CHF exacerbation, Chronic Obstructive Pulmonary Disease juan Myocardial Infarction pneumonia. Antibiotic administration: Not indicated. Differential diagnosis: generalized weakness, hyperventilation, hypovolemia, idiopathic dizziness, near-syncope, . The patient's Wells Deep Vein Thrombosis Score was calculated as follows: Total Score: 0-2 Pts- Low Risk. The patient's pulmonary embolism risk score was calculated as follows: Total Score: 0-2 points. This patient was found to be at low risk for a pulmonary embolism by using the Well's assessment criteria. Immunization status:. Data reviewed: vital signs, nurses notes, lab test result(s), EKG, radiologic studies. Data interpreted: monitoring and evaluation advisor: rate is 81 beats/min, rhythm is regular, Pulse oximetry: on room air is 100 %. Test interpretation: by ED physician or midlevel provider: ECG, plain radiologic studies. Counseling: I had a detailed discussion with the patient and/or guardian regarding: the historical points, exam findings, and any diagnostic results supporting the discharge/admit diagnosis, lab results, radiology results, the need for outpatient follow up, for definitive care, a family practitioner. 03/14 12:35 Order name: Urine Dipstick--Ancillary (enter results); Complete Time: 13:01 em1 03/14 12:35 Order name: Urine --Ancillary (enter results); Complete Time: 13: em1 03/14 12:52 Order name: CBC with Diff; Complete Time: 15:24 [facility] 03/14 12:52 Order name: Comprehensive Metabolic Panel; Complete Time: 15:24 [facility] 03/14 12:52 Order name: Acetaminophen; Complete Time: 15:24 [facility] 03/14 12:52 Order name: ETOH Level; Complete Time: 15:24 [facility] 03/14 10:37 Order name: CT Head Brain wo Cont; Complete Time: 12:43 03/14 12:52 Order name: Salicylate; Complete Time: 15:24 [facility] 03/14 12:52 Order name: Urine Drug Screen; Complete Time: 15:24 [facility] 03/14 13:21 Order name: Troponin (emerg Dept Use Only); Complete Time: 15:24 [facility] 03/14 13:21 Order name: BNP; Complete Time: 15:24 [facility] 03/14 13:21 Order name: D-Dimer; Complete Time: 15:24 [facility] 03/14 13:21 Order name: Chest Pa And Lat (2 Views) XRAY; Complete Time: 15:24 [facility] 03/14 12:52 Order name: EKG; Complete Time: 12:52 [facility] 03/14 12:52 Order name: EKG - Nurse/Tech; Complete Time: 14:39 [facility] 03/14 12:52 Order name: IV Saline Lock; Complete Time: 13:14 [facility] 03/14 12:52 Order name: Labs collected and sent; Complete Time: 13:14 [facility] 03/14 12:52 Order name: Urine Dipstick-Ancillary (obtain specimen); Complete Time: 13:14 [facility] Administered Medications: 13:14 Drug: NS 0.9% 1000 ml Route: IV; Rate: 1 bolus; Site: right antecubital; 23:15 Follow up: Response: No adverse reaction; IV Status: Completed infusion 15:56 Drug: Norvasc 10 mg Route: PO; 16:00 Follow up: Response: Medication administered at discharge. Disposition: 03/14/20 15:27 Discharged to Home. Impression: Essential (primary) hypertension, Headache, Obesity, unspecified. - Condition is Stable. - Discharge Instructions: General Headache Without Cause, Hypertension, Obesity, Adult, Aspirin and Your Heart. - Prescriptions for Norvasc 5 mg Oral Tablet - take 1 tablet by ORAL route once daily; 20 tablet. - Medication Reconciliation Form, Thank You Letter, Antibiotic Education, Prescription Opioid Use, Work release form form. - Follow up: Private Physician; When: 2 - 3 days; Reason: Recheck today's complaints, Continuance of care, Re-evaluation by your physician. Follow up: Tamir Pulido DO; When: 2 - 3 days; Reason: Recheck today's complaints, Re-evaluation by your physician. - Problem is new. - Symptoms have improved. Signatures: Dispatcher [employer] EDDC Marisela Abdi, CRIMINAL JUSTICE FACULTY-C CRIMINAL JUSTICE FACULTY-Coty Ballesteros, RN RN dmJacques Duvall MD MD cha Smirch, Shelby, RN RN ss Armida Mcdowell RN RN Corrections: (The following items were deleted from the chart) 16:08 15:27 03/14/2020 15:27 Discharged to Home. Impression: Essential (primary) ss hypertension; Headache; Obesity, unspecified. Condition is Stable. Forms are Medication Reconciliation Form, Thank You Letter, Antibiotic Education, Prescription Opioid Use. Follow up: Private Physician; When: 2 - 3 days; Reason: Recheck today's complaints, Continuance of care, Re-evaluation by your physician. Follow up: Tamir Pulido; When: 2 - 3 days; Reason: Recheck today's complaints, Re-evaluation by your physician. Problem is new. Symptoms have improved. juan
--- NOTE | 2020-03-14 15:27 | ER ---
Nurse's Notes [facility] Name: Tiera Galindo Age: 24 yrs Sex: Female : 1995 Arrival Date: 03/14/2020 Time: 10:06 Bed 26 Private MD: Diagnosis: Essential (primary) hypertension;Headache;Obesity, unspecified Presentation: 03/14 10:13 Chief complaint: Patient states: dizziness, headache, weakness for 3-4 days, pt also dm5 c/o being forgetful and decreased appetite. Coronavirus screen: Patient denies a cough. Patient reports shortness of breath or difficulty breathing. Patient denies measured and/or subjective temperature greater than 100.4F prior to today's visit. Patient denies travel on a cruise ship or to a country the [facility] currently lists as an affected area. Patient denies contact with known and/or suspected case of COVID-19. Ebola Screen: Patient negative for fever greater than or equal to 101.5 degrees Fahrenheit, and additional compatible Ebola Virus Disease symptoms Patient denies exposure to infectious person. Patient denies travel to an Ebola-affected area in the 21 days before illness onset. No symptoms or risks identified at this time. Initial Sepsis Screen: Does the patient meet any 2 criteria? No. Patient's initial sepsis screen is negative. Does the patient have a suspected source of infection? No. Patient's initial sepsis screen is negative. Risk Assessment: Do you want to hurt yourself or someone else? Patient reports no desire to harm self or others. Onset of symptoms was March 11, 2020. 10:13 Method Of Arrival: Ambulatory dm5 10:13 Acuity: ELEAZAR 3 dm5 Triage Assessment: 23:17 Pain: Also complains of. Historical: - Allergies: 10:17 NKA; dm5 - Home Meds: 10:17 Melatonin Oral [Active]; dm5 - PMHx: 10:17 "insulin resistant"; Depression; PCOS; dm5 - PSHx: 10:17 None; dm5 - Immunization history:: Adult Immunizations unknown. - Social history:: Smoking status: Patient denies any tobacco usage or history of. Screenin:30 Abuse screen: Denies threats or abuse. Nutritional screening: No deficits noted. Tuberculosis screening: No symptoms or risk factors identified. Fall Risk None identified. Assessment: 13:22 General: Appears in no apparent distress. Behavior is calm, cooperative, appropriate ah for age. Pain: Complains of pain in forehead. Neuro: Level of Consciousness is awake, alert, obeys commands, Oriented to person, place, time, situation, Appropriate for age Certified Rehabilitation Counselor are equal bilaterally Reports blurred vision dizziness, headache frontal area. Cardiovascular: Heart tones S1 S2 present Capillary refill < 3 seconds Patient's skin is warm and dry. Respiratory: Airway is patent Respiratory effort is even, unlabored. GI: Patient currently denies nausea, vomiting. Derm: Skin is intact, is healthy with good turgor. Vital Signs: 10:13 BP 144 / 102; Pulse 81; Resp 18; Temp 97.8; Pulse Ox 100% on R/A; Weight 142.43 kg; dm5 Height 5 ft. 4 in. (162.56 cm); Pain 0/10; 15:00 BP 149 / 92; Pulse 78; Resp 18; Pulse Ox 97% ; ah 10:13 Body Mass Index 53.90 (142.43 kg, 162.56 cm) dm5 10:13 BP taken on wrist with small adult cuff, dizziness rated at 7/10 dm5 ED Course: 10:06 Patient arrived in ED. am2 10:16 Triage completed. dm5 10:49 CT Head Brain wo Cont In Process Unspecified. EDMS 12:00 Urine collected: clean catch specimen, clear, florence colored, Legal drug screen obtained 3 per protocol. 12:35 Armida Mcdowell, RN is Primary Nurse. 12:49 Jacques Long MD is Attending Physician. juan 13:10 Initial lab(s) drawn, by pr, sent to lab. Inserted saline lock: 20 gauge in right jp3 antecubital area, using aseptic technique. Blood collected. Patient maintains SpO2 saturation greater than 95% on room air. 13:14 Patient has correct armband on for positive identification. Bed in low position. Call jp3 light in reach. Side rails up X 1. Warm blanket given. Verbal reassurance given. Pulse ox on. NIBP on. 14:03 Chest Pa And Lat (2 Views) XRAY In Process Unspecified. EDMS 14:27 EKG done, by solar maintenance technician. reviewed by Jacques Long MD. at1 14:30 No provider procedures requiring assistance completed. IV discontinued, intact, ah bleeding controlled, No redness/swelling at site. Pressure dressing applied. 15:26 Tamir Pulido DO is Referral Physician. [facility] Administered Medications: 13:14 Drug: NS 0.9% 1000 ml Route: IV; Rate: 1 bolus; Site: right antecubital; 23:15 Follow up: Response: No adverse reaction; IV Status: Completed infusion 15:56 Drug: Norvasc 10 mg Route: PO; 16:00 Follow up: Response: Medication administered at discharge. Outcome: 15:27 Discharge ordered by . [facility] 15:45 Discharged to home ambulatory. 15:45 Condition: good 15:45 Discharge instructions given to patient, Instructed on discharge instructions, follow up and referral plans. Demonstrated understanding of instructions, follow-up care, medications, Prescriptions given X 1. 16:08 Patient left the ED. Signatures: Dispatcher [employer] EDMS Coty Perez, RN RN Jacques Fernandez MD MD cha Smirch, Shelby, RN RN Day Tate, erosion control coordinator EKG Tat1 Day Rosenberg am2 Patel Ibrahim jp3 Armida Mcdowell RN RN
[2020-03-14] MEDS ORDERED: AMLODIPINE 5 MG TAB ONE (16:01)
[2020-03-14 16:23] VITALS: TEMP 97.8
[2020-03-14 16:24] VITALS: BP 149/92; O2SAT 97
--- NOTE | 2020-03-15 07:46 | EKG ---
Test Date: 2020-03-14 Test Time: 14:21:57 Human Resource Adviser: ALVA MEASUREMENT RESULTS: Intervals: Rate: 69 SC: 162 QRSD: 84 QT: 422 QTc: 452 [place]: P: 29 SC: 162 QRS: 51 T: 46 INTERPRETIVE STATEMENTS: Sinus rhythm with marked sinus arrhythmia Otherwise normal ECG Compared to ECG 07/14/2015 12:47:18 Prolonged QT interval no longer present Electronically Signed On 03-15-20 07:44:34 CDT by Satinder Murdock
== END 2020-03-14 16:08 | disposition home or self-care (01) ==
LOC: ER 10:01
DX: I10 Essential (primary) hypertension (principal); R51 Headache; E66.9 Obesity, unspecified; F32.9 Major depressive disorder, single episode, unspecified
CPT/HCPCS: 96361; 93005; 85025; 36415; 80320; 80329 ×2; 81025; 85379; 80307 ×8; 81003; 84484; 80053; 83880; 70450; 71046; 96360; 99284; J7030

== ENCOUNTER 2020-04-19 09:05 | Emergency (ER) | payer OTHER ==
--- OUTSIDE RECORDS SUMMARY | 2020-04-19 09:24 | XMS REPORT | Continuity of Care Document ---
:1995 Author Organization [facility] t Address [address] [place] [address] Care Team Providers Name Role Phone Unavailable Unavailable Unavailable Payers Payer Name Policy Type Policy Number Effective Date Expiration Date S ource Problems This patient has no known problems. Allergies, Adverse Reactions, Alerts Allergy Allergy Status Severity Reaction(s) Onset Inactive Treating Comm ents Source Name Type Date Date Clinician No Known DA Active [facility] Allergie 01-30 [place] 00:00: [address] Medications This patient has no known medications. Procedures This patient has no known procedures. Encounters Start End Encounter Admission Attending Care Care Encounter Source Date/Time Date/Time Type Type Clinicians Facility Department ID 2019-06-22 2019-06-22 Emergency E [address] [facility] [address] [facility] 15:00:00 15:00:00 Results Test Description Test Time [...] for culture: Temperature > 100.4 F UA [id number] 14:38:00 Test Item Value Reference Range Interpretation [...] culture: Temperature > 100.4 F BASIC METABOLIC [id number] 13:45:00 Test Item Value Reference Range Interpretation [...] 9.1 MG/DL 8.4-10.2 N CA) HEPATIC FUNCTION [id number] 13:45:00 Test Item Value Reference Range Interpretation [...] 119 UNITS/L 38-126 N ALKP) HCG SERUM [id number] 13:45:00 Test Item Value Reference Range Interpretation Comments HCG SERUM QUAL (test code = HCGQL) NEGATIVE NEGATIVE A [id number] 13:45:00 Test Item Value Reference Range Interpretation Comments TROPONIN-I (test code = TROPI) < 0.012 NG/ML 0.012-0.033 L BASIC METABOLIC [id number] 13:44:00 Test Item Value Reference Range Interpretation [...] 9.1 MG/DL 8.4-10.2 N CA) HEPATIC FUNCTION [id number] 13:44:00 Test Item Value Reference Range Interpretation [...] 119 UNITS/L 38-126 N ALKP) HCG SERUM [id number] 13:44:00 Test Item Value Reference Range Interpretation Comments HCG SERUM QUAL (test code = HCGQL) NEGATIVE [id number] 13:44:00 Test Item Value Reference Range Interpretation Comments TROPONIN-I (test code = TROPI) < 0.012 NG/ML 0.012-0.033 L POC VENOUS BLOOD [id number] 13:39:00 Test Item Value Reference Range Interpretation Comments POC LACTIC ACID (test code = 0.76 MMOL/L 0.4-2.0 N POCLAC) POC VENOUS BLOOD GAS PH (test 7.352 7.35-7.45 N code = POCPHV) POC VENOUS BLOOD GAS PCO2 (test 41.0 mmHg 35.0-45.0 N code = LPTCNL0K) POC VENOUS BLOOD GAS PO2 (test 26.0 mmHG 0-40 N code = LOKZK9G) POC HCO3 VENOUS (test code = 22.8 MMOL/L 20-26 N IAMVUY1P) POC BASE EXCESS VENOUS (test code -3 MMOL/L -3.0-3.0 N = POCBEV) POC O2 SATURATION VENOUS (test 44 % 72-77 L code = LPBP0IG) UA RFLX MICR CULT IF [id number] 13:35:00 Test Item Value Reference Range Interpretation [...] for culture: Temperature > 100.4 F UA [id number] 13:35:00 Test Item Value Reference Range Interpretation Comments UA RBC (test code = RBCU) RBC/HPF 0-3 UA WBC (test code = XWBCU) WBC/HPF 0-5 UA EPITHELIAL CELLS (test code = EPI/HPF FEW EPIU) UA BACTERIA (test code = XBACU) NONE SOURCE OF URINE: CLEAN CATCHIndication for culture: Temperature > 100.4 F UA RFLX MICR CULT IF [id number] 13:35:00 Test Item Value Reference Range Interpretation [...] for culture: Temperature > 100.4 F UA [id number] 13:35:00 Test Item Value Reference Range Interpretation Comments UA RBC (test code = RBCU) RBC/HPF 0-3 UA WBC (test code = XWBCU) WBC/HPF 0-5 UA EPITHELIAL CELLS (test code = EPI/HPF FEW EPIU) UA BACTERIA (test code = XBACU) NONE SOURCE OF URINE: CLEAN CATCHIndication for culture: Temperature > 100.4 F CBC W/AUTO [id number] 13:33:00 Test Item Value Reference Range Interpretation [...] 0.00 K/mm3 0.0-0.1 N NRBC#) BASIC METABOLIC [id number] 13:33:00 Test Item Value Reference Range Interpretation [...] 9.1 MG/DL 8.4-10.2 N CA) HEPATIC FUNCTION [id number] 13:33:00 Test Item Value Reference Range Interpretation [...] 119 UNITS/L 38-126 N ALKP) HCG SERUM [id number] 13:33:00 Test Item Value Reference Range Interpretation Comments HCG SERUM QUAL (test code = HCGQL) NEGATIVE [id number] 13:33:00 Test Item Value Reference Range Interpretation Comments TROPONIN-I (test code = TROPI) NG/ML 0.0-0.045 - XR CHEST 2 [id number] 13:17:00 Patient Name: VICTOR MANUEL WEEKS Unit No: [id number] EXAMS: CPT CODE: [id number] XR CHEST 2 V 81258 Site ID: [id number] HISTORY: Chest pain FINDINGS: The lungs are clear and normally expanded. The heart and pulmonary vasculature is normal. Osseous structures are unremarkable. IMPRESSION: Negative chest X-ray. at 1317 Reported and signed by: Ashok Jaramillo MD CC: Jay Jay Jackman MD Technologist: Fátima Frank, RT (R) Transcrpt Date/Tm/Trnsp: 07/07/2019 (1317) [email or web address] Orig Print D/T: S: 07/07/2019 (1320) [facility] NAME: VICTOR MANUEL WEEKS [id number] PHYS: Jay [place] [address] : 1995 AGE: 23 SEX: F LOC: [facility] PHONE #: [phone] EXAM DATE: 07/07/2019 STATUS: PRE ER FAX #: [phone] RADIOLOGY NO: PAGE 1Signed ReportURINALYSIS [id number] 19:09:00 Test Item Value Reference Range Interpretation [...] Culture Chk code = UACULT) Criteria UA [id number] 19:09:00 Test Item Value Reference Range Interpretation Comments UA RBC (test code = RBCU) 0-3 RBC/HPF 0-3 UA WBC (test code = XWBCU) 10-20 WBC/HPF 0-5 A UA EPITHELIAL CELLS (test code FEW EPI/HPF FEW = EPIU) UA BACTERIA (test code = XBACU) MODERATE NONE A URINALYSIS [id number] 18:52:00 Test Item Value Reference Range Interpretation [...] Criteria Culture Chk code = UACULT) UA [id number] 18:52:00 Test Item Value Reference Range Interpretation Comments UA RBC (test code = RBCU) RBC/HPF 0-3 UA WBC (test code = XWBCU) WBC/HPF 0-5 UA EPITHELIAL CELLS (test code = EPI/HPF FEW EPIU) UA BACTERIA (test code = XBACU) NONE URINALYSIS [id number] 18:52:00 Test Item Value Reference Range Interpretation [...] Criteria Culture Chk code = UACULT) UA [id number] 18:52:00 Test Item Value Reference Range Interpretation Comments UA RBC (test code = RBCU) RBC/HPF 0-3 UA WBC (test code = XWBCU) WBC/HPF 0-5 UA EPITHELIAL CELLS (test code = EPI/HPF FEW EPIU) UA BACTERIA (test code = XBACU) NONE CBC W/O [id number] 18:40:00 Test Item Value Reference Range Interpretation [...] 0.00 K/mm3 0.0-0.1 N NRBC#) BASIC METABOLIC [id number] 18:39:00 Test Item Value Reference Range Interpretation [...] 9.4 MG/DL 8.4-10.2 N CA) HEPATIC FUNCTION [id number] 18:39:00 Test Item Value Reference Range Interpretation [...] code = 108 UNITS/L 38-126 N ALKP) [id number] 18:39:00 Test Item Value Reference Range Interpretation Comments LIPASE (test code = LIP) 109 UNITS/L 23-300 N HCG SERUM [id number] 18:39:00 Test Item Value Reference Range Interpretation Comments HCG SERUM QUAL (test code = HCGQL) NEGATIVE NEGATIVE A BASIC METABOLIC [id number] 18:37:00 Test Item Value Reference Range Interpretation [...] code = CA) MG/DL 8.7-9.7 HEPATIC FUNCTION [id number] 18:37:00 Test Item Value Reference Range Interpretation Comments TOTAL PROTEIN (test code = PROT) G/DL 6.3-8.2 ALBUMIN (test code = ALB) G/DL 3.5-5.0 BILIRUBIN TOTAL (test code = BILT) MG/DL 0.2-1.3 BILIRUBIN DIRECT (test code = BILD) MG/DL 0.0-0.3 SGOT/AST (test code = AST) UNITS/L 15-37 SGPT/ALT (test code = ALT) UNITS/L 9-52 ALKALINE PHOSPHATASE (test code = UNITS/L 38-126 ALKP) [id number] 18:37:00 Test Item Value Reference Range Interpretation Comments LIPASE (test code = LIP) UNITS/L 23-300 HCG SERUM [id number] 18:37:00 Test Item Value Reference Range Interpretation Comments HCG SERUM QUAL (test code = HCGQL) NEGATIVE NEGATIVE A
[2020-04-19] MEDS ORDERED: NA CHLORIDE 0.9% 1,000 ML ONE (09:46)
[2020-04-19 10:00] LABS: Absolute Lymphocytes (CBC) 2.1 K/uL (0.7-4.9); Basophils % 0.6 % (0-1.3); Hematocrit 41.1 % (36.0-45.0); Lymphocytes % 33.2 % (15.3-44.8); MPV 8.7 fL (7.6-11.3); RBC Red Blood Cell Count 4.88 M/uL (3.86-4.86)
[2020-04-19 10:09] LABS: Albumin 3.2 g/dL (3.4-5.0); Bilirubin Direct 0.2 mg/dL (0-0.2); Bilirubin Total 0.7 mg/dL (0.2-1.0); Potassium 3.9 mmol/L (3.5-5.1); Protein, Total 9.3 g/dL (6.4-8.2)
--- NOTE | 2020-04-19 12:30 | RAD REPORT ---
EXAM DESCRIPTION: CT - Abdomen Pelvis W Contrast - 04/19/2020 12:22 pm CLINICAL HISTORY: IV ONLY, ABD PAIN AND DIARRHEA COMPARISON: No comparisons TECHNIQUE: Biphasic, helical CT imaging of the abdomen and pelvis was performed following 100 ml non -ionic IV contrast. No oral contrast administered. All CT scans are performed using dose optimization technique as appropriate and may include automated exposure control or mA/KV adjustment according to patient size. FINDINGS: No suspicious findings in the lung bases. Liver attenuation is borderline fatty infiltrated. No focal lesion. Spleen and pancreas show no suspi cious findings. Gallbladder and biliary tree are also without suspicious finding. Symmetric renal function is seen with no hydronephrosis or suspicious renal mass. No pyelonephritis o r acute parenchymal process. No bladder abnormalities. No adrenal abnormalities. Uterus and ovaries s how no suspicious findings. No dilated bowel loops or bowel wall thickening. No free air, free fluid or inflammatory stranding. No hernia, mass or bulky lymphadenopathy. A few small nonspecific 1 centimeter or less mesenteric ly mph nodes present. No suspicious bony findings. IMPRESSION: Contrast enhanced CT abdomen and pelvis showing no significant or suspicious finding.
--- NOTE | 2020-04-19 12:35 | ER ---
Nurse's Notes [facility] Name: Tiera Galindo Age: 24 yrs Sex: Female : 1995 Arrival Date: 04/19/2020 Time: 09:08 Bed 19 Private MD: Diagnosis: Diarrhea, unspecified Presentation: 04/19 09:20 Chief complaint: Patient states: diarrhea X 3 days, feeling tired, has soreness in her iw legs X 10 days, also nauseated , no vomiting, has upper abd cramping after she has BM, no fever, +chills. Ebola Screen: Patient negative for fever greater than or equal to 101.5 degrees Fahrenheit, and additional compatible Ebola Virus Disease symptoms Patient denies exposure to infectious person. Patient denies travel to an Ebola-affected area in the 21 days before illness onset. No symptoms or risks identified at this time. Initial Sepsis Screen: Does the patient meet any 2 criteria? No. Patient's initial sepsis screen is negative. Does the patient have a suspected source of infection? No. Patient's initial sepsis screen is negative. Risk Assessment: Do you want to hurt yourself or someone else? Patient reports no desire to harm self or others. Onset of symptoms was April 15, 2020. 09:20 Method Of Arrival: Ambulatory iw 09:20 Acuity: ELEAZAR 3 iw 09:40 Coronavirus screen: Client denies travel out of the [place] in the last 14 days. em Historical: - Allergies: 09:23 NKA; iw - Home Meds: 09:23 Seroquel 25 mg Oral tab [Active]; iw - PMHx: 09:23 "insulin resistant"; Depression; PCOS; iw - PSHx: 09:23 None; iw - Immunization history:: Adult Immunizations not up to date. - Social history:: Smoking status: Patient reports the use of cigarette tobacco products, denies chronic smoking, but will smoke occasionally. Screenin:40 Abuse screen: Denies threats or abuse. Nutritional screening: No deficits noted. em Tuberculosis screening: No symptoms or risk factors identified. Fall Risk None identified. Assessment: 09:40 General: Appears in no apparent distress. comfortable, Behavior is calm, cooperative, em appropriate for age, Denies fever, reports feeling "cold" but denies fever. Pain: Complains of pain in left upper quadrant Pain currently is 5 out of 10 on a pain scale. Neuro: Level of Consciousness is awake, alert, obeys commands, Oriented to person, place, time, situation, Appropriate for age. Cardiovascular: Capillary refill < 3 seconds Patient's skin is warm and dry. Respiratory: Airway is patent Respiratory effort is even, unlabored, Respiratory pattern is regular, symmetrical, Denies cough. GI: Abdomen is obese, Bowel sounds present X 4 quads. Abd is soft X 4 quads Abdomen is tender to palpation in left upper quadrant Reports diarrhea, nausea, Patient currently denies vomiting. Derm: Skin is intact, is healthy with good turgor, Skin is pink, warm \\T\\ dry. Musculoskeletal: Capillary refill < 3 seconds, Range of motion: intact in all extremities. 10:40 Reassessment: Patient appears in no apparent distress at this time. Patient and/or em family updated on plan of care and expected duration. Pain level reassessed. Patient is alert, oriented x 3, equal unlabored respirations, skin warm/dry/pink. sent preg. serum to lab, pending results for CT. 11:43 Reassessment: Patient appears in no apparent distress at this time. wheeled to CT via em wheelchair. 11:55 Reassessment: Patient appears in no apparent distress at this time. Patient and/or em family updated on plan of care and expected duration. Pain level reassessed. Patient is alert, oriented x 3, equal unlabored respirations, skin warm/dry/pink. Patient states feeling better. Patient states symptoms have improved. 12:58 Reassessment: Patient appears in no apparent distress at this time. Patient and/or em family updated on plan of care and expected duration. Pain level reassessed. Patient is alert, oriented x 3, equal unlabored respirations, skin warm/dry/pink. Vital Signs: 09:21 BP 151 / 92; Pulse 105; Resp 16; Temp 98.6; Pulse Ox 100% on R/A; Weight 136.08 kg; iw Height 5 ft. 5 in. (165.10 cm); 09:56 BP 151 / 92; Pulse 100; Resp 18; Pulse Ox 100% on R/A; em 11:55 BP 141 / 94; Pulse 89; Resp 20; Pulse Ox 99% on R/A; Pain 0/10; em 12:58 BP 138 / 91; Pulse 86; Resp 18; Pulse Ox 99% on R/A; Pain 0/10; em 09:21 Body Mass Index 49.92 (136.08 kg, 165.10 cm) ED Course: 09:08 Patient arrived in ED. ds1 09:12 Marisela Abdi FNP-C is [facility]. kb 09:12 Bradley Ordoñez MD is Attending Physician. kb 09:13 Rico Stevens, RN is Primary Nurse. em 09:21 Triage completed. iw 09:40 Patient has correct armband on for positive identification. Bed in low position. Call em light in reach. Side rails up X2. Pulse ox on. NIBP on. 09:40 Arm band placed on. em 09:45 Initial lab(s) drawn, by me, sent to lab. Inserted saline lock: 20 gauge in right em antecubital area, using aseptic technique. Blood collected. 11:47 Abdomen In Process Unspecified. EDMS 12:58 No provider procedures requiring assistance completed. IV discontinued, intact, em bleeding controlled, No redness/swelling at site. Pressure dressing applied. Administered Medications: 09:45 Drug: NS 0.9% 1000 ml Route: IV; Rate: 1000 ml; Site: right antecubital; em 12:59 Follow up: IV Status: Completed infusion; IV Intake: 1000ml em Intake: 12:59 IV: 1000ml; Total: 1000ml. em Outcome: 12:35 Discharge ordered by . kb 12:58 Discharged to home ambulatory. em 12:58 Condition: good 12:58 Discharge instructions given to patient, Instructed on discharge instructions, follow up and referral plans. medication usage, Demonstrated understanding of instructions, follow-up care, medications, Prescriptions given X 1. 12:59 Patient left the ED. em Signatures: Dispatcher [employer] EDMS Marisela Abdi FNP-C FNP-Rico Kimbrough, RN RN [place] Do[place] ds1 Shanika Gates RN RN
--- NOTE | 2020-04-19 12:36 | EDPHYS ---
Physician Documentation [facility] Name: Tiera Galindo Age: 24 yrs Sex: Female : 1995 Arrival Date: 04/19/2020 Time: 09:08 Bed 19 Private MD: ED Physician Bradley Ordoñez HPI: 04/19 09:27 This 24 yrs old Black Female presents to ER via Ambulatory with complaints of Abdominal kb Cramping, Diarrhea. 09:27 The patient presents to the emergency department with diarrhea. Onset: The kb symptoms/episode began/occurred 3 day(s) ago. Possible causes: new diet. The symptoms are aggravated by nothing. The symptoms are alleviated by nothing. Associated signs and symptoms: Pertinent positives: diarrhea, Pertinent negatives: abdominal pain, anorexia, belching, constipation, dysuria, fever, flatulence, GI bleeding, hematuria, nausea, vaginal discharge, vomiting. Severity of symptoms: At their worst the symptoms were moderate in the emergency department the symptoms are unchanged. The patient has not experienced similar symptoms in the past. The patient has not recently seen a physician. Pt reports diarrhea for 3 days and abdominal cramps. Recently started [employer] diet.. Historical: - Allergies: 09:23 NKA; iw - Home Meds: 09:23 Seroquel 25 mg Oral tab [Active]; iw - PMHx: 09:23 "insulin resistant"; Depression; PCOS; iw - PSHx: 09:23 None; iw - Immunization history:: Adult Immunizations not up to date. - Social history:: Smoking status: Patient reports the use of cigarette tobacco products, denies chronic smoking, but will smoke occasionally. ROS: 09:26 Constitutional: Negative for fever, chills, and weight loss, ENT: Negative for injury, kb pain, and discharge, Neck: Negative for injury, pain, and swelling, Cardiovascular: Negative for chest pain, palpitations, and edema, Respiratory: Negative for shortness of breath, cough, wheezing, and pleuritic chest pain, Back: Negative for injury and pain, MS/Extremity: Negative for injury and deformity, Skin: Negative for injury, rash, and discoloration, Neuro: Negative for headache, weakness, numbness, tingling, and seizure. 09:26 Abdomen/GI: Positive for diarrhea, abdominal cramps, Negative for nausea and vomiting. Exam: 09:26 Constitutional: This is a well developed, well nourished patient who is awake, alert, kb and in no acute distress. Head/Face: Normocephalic, atraumatic. Chest/axilla: Normal chest wall appearance and motion. Nontender with no deformity. No lesions are appreciated. Cardiovascular: Regular rate and rhythm with a normal S1 and S2. No gallops, murmurs, or rubs. Normal PMI, no JVD. No pulse deficits. Respiratory: Lungs have equal breath sounds bilaterally, clear to auscultation and percussion. No rales, rhonchi or wheezes noted. No increased work of breathing, no retractions or nasal flaring. Back: No spinal tenderness. No costovertebral tenderness. Full range of motion. Skin: Warm, dry with normal turgor. Normal color with no rashes, no lesions, and no evidence of cellulitis. MS/ Extremity: Pulses equal, no cyanosis. Neurovascular intact. Full, normal range of motion. Neuro: Awake and alert, GCS 15, oriented to person, place, time, and situation. Cranial nerves II-XII grossly intact. Motor strength 5/5 in all extremities. Sensory grossly intact. Cerebellar exam normal. Normal gait. 09:26 Abdomen/GI: Inspection: obese Bowel sounds: normal, in all quadrants, Palpation: soft, in all quadrants, moderate abdominal tenderness, in the left upper quadrant. Vital Signs: 09:21 BP 151 / 92; Pulse 105; Resp 16; Temp 98.6; Pulse Ox 100% on R/A; Weight 136.08 kg; iw Height 5 ft. 5 in. (165.10 cm); 09:56 BP 151 / 92; Pulse 100; Resp 18; Pulse Ox 100% on R/A; em 11:55 BP 141 / 94; Pulse 89; Resp 20; Pulse Ox 99% on R/A; Pain 0/10; em 12:58 BP 138 / 91; Pulse 86; Resp 18; Pulse Ox 99% on R/A; Pain 0/10; em 09:21 Body Mass Index 49.92 (136.08 kg, 165.10 cm) iw MDM: 09:12 Patient medically screened. kb 09:26 Data reviewed: vital signs, nurses notes. Data interpreted: Pulse oximetry: on room air kb is 100 %. Interpretation: normal. 10:24 ED course: Pt now reports right knee pain that started 2 weeks ago. States she wanted kb to mention it since she was already here. Denies trauma or injury. Ambulates with steady gait. . 12:34 Counseling: I had a detailed discussion with the patient and/or guardian regarding: the kb historical points, exam findings, and any diagnostic results supporting the discharge/admit diagnosis, lab results, radiology results, the need for outpatient follow up, a family practitioner, to return to the emergency department if symptoms worsen or persist or if there are any questions or concerns that arise at home. 04/19 09:23 Order name: Basic Metabolic Panel kb 04/19 09:23 Order name: CBC with Diff; Complete Time: 10:04 kb 04/19 09:23 Order name: Hepatic Function; Complete Time: 10:12 kb 04/19 09:23 Order name: Lipase; Complete Time: 10:12 kb 04/19 09:24 Order name: Basic Metabolic Panel; Complete Time: 10:12 EDMS 04/19 10:21 Order name: Test, Serum; Complete Time: 11:36 kb 04/19 09:23 Order name: IV Saline Lock; Complete Time: 09:50 kb 04/19 09:23 Order name: Labs collected and sent; Complete Time: 09:50 kb 04/19 10:29 Order name: Abdomen ; Complete Time: 12:33 EDMS Administered Medications: 09:45 Drug: NS 0.9% 1000 ml Route: IV; Rate: 1000 ml; Site: right antecubital; em 12:59 Follow up: IV Status: Completed infusion; IV Intake: 1000ml em Disposition: 04/20 08:55 Co-signature as Attending Physician, Bradley Ordoñez MD I agree with the assessment and kdr plan of care. Disposition: 04/19/20 12:35 Discharged to Home. Impression: Diarrhea, unspecified. - Condition is Stable. - Discharge Instructions: Food Choices to Help Relieve Diarrhea, Adult, Diarrhea, Adult, [id number]. - Prescriptions for Bentyl 20 mg Oral Tablet - take 1 tablet by ORAL route every 6 hours As needed; 20 tablet. - Medication Reconciliation Form, Thank You Letter, Antibiotic Education, Prescription Opioid Use, Work release form form. - Follow up: Emergency Department; When: As needed; Reason: Worsening of condition. Follow up: Private Physician; When: 2 - 3 days; Reason: Recheck today's complaints, Continuance of care, Re-evaluation by your physician. Signatures: Dispatcher [employer] [facility] Marisela Abdi, ALIX-C [employer] SALESPERSON-CkBradley Blair MD MD kdr Munoz, Edgar, RN RN Shanika Rodriguez RN RN iw Corrections: (The following items were deleted from the chart) 04/19 10:27 10:04 Abdomen Pelvis W Con+[id number].[id number] ordered. [facility] 12:59 12:35 04/19/2020 12:35 Discharged to Home. Impression: Diarrhea, unspecified. Condition em is Stable. Forms are Medication Reconciliation Form, Thank You Letter, Antibiotic Education, Prescription Opioid Use. Follow up: Emergency Department; When: As needed; Reason: Worsening of condition. Follow up: Private Physician; When: 2 - 3 days; Reason: Recheck today's complaints, Continuance of care, Re-evaluation by your physician. kb
[2020-04-19 14:00] VITALS: TEMP 98.6
[2020-04-19 14:03] VITALS: O2SAT 99
[2020-04-19 14:04] VITALS: BP 138/91
== END 2020-04-19 12:59 | disposition home or self-care (01) ==
LOC: ER 09:05
DX: R19.7 Diarrhea, unspecified (principal); F17.210 Nicotine dependence, cigarettes, uncomplicated; F32.9 Major depressive disorder, single episode, unspecified
CPT/HCPCS: 96361; 85025; 80048; 36415; 84703; 80076; 83690; 74177; 96360; 99284; Q9967; J7030